=== PATIENT | male | born 1960 | race African-American/Black ===

== ENCOUNTER 2018-05-28 23:06 | Inpatient (IN) | payer OTHER ==
[2018-05-28 23:23] VITALS: BMI 19.8
--- NOTE | 2018-05-28 23:54 | HP ---
CIWA Score - CIWA Score Nausea/Vomitin Muscle Tremors: 3 Anxiety: 3 Agitation: 3 Paroxysmal Sweats: 1-Minimal Palms Moist Orientation: 0-Oriented Tacttile Disturbances: 1-Very Mild Itch/Numbness Auditory Disturbances: 1-Very Mild Visual Disturbances: 0-None Headache: 2-Mild CIWA-Ar Total Score: 17 Admission ROS BHS - HPI Chief Complaint: i need help to stop drinking alcohol and cocaine Allergies/Adverse Reactions: Allergies Allergy/AdvReac Type Severity Reaction Status Date / Time aspirin Allergy Severe Swelling Verified 02/16/16 18:26 tomato [Tomato] Allergy Mild Verified 02/16/16 18:26 milk AdvReac Intermediate Nausea Verified 02/16/16 18:26 lactose AdvReac Nausea Verified 02/16/16 18:26 History of Present Illness: this 58 years old male with alcohol and cocaine dependence,seeking detox, withdrawal symptom,last detox - Ebola screening Have you traveled outside of the country in the last 21 days: No (N) Have you had contact with anyone from an Ebola affected area: No Have you been sick,other than usual withdrawal symptoms: No Do you have a fever: No - Review of Systems Constitutional: Loss of Appetite, Malaise, Night Sweats, Changes in sleep, Unintentional Wgt. Loss EENT: reports: Nose Congestion, Other (injury to right eye 2017,hit by object, had surgery ,but loss vison since then treated at [facility]) Respiratory: reports: No Symptoms reported Cardiac: reports: No Symptoms Reported GI: reports: Diarrhea, Poor Appetite, Vomiting : reports: No Symptoms Reported Musculoskeletal: reports: Muscle Pain Integumentary: reports: Dryness Neuro: reports: Tremors Hematology: reports: No Symptoms Reported Psychiatric: reports: No Sypmtoms Reported, Judgement Intact, Mood/Affect Appropiate, Orientated x3 Patient History - Patient Medical History Hx Anemia: Yes (not sure if still anemic; not taking any supplement) Hx Asthma: Yes Hx Chronic Obstructive Pulmonary Disease (COPD): No Hx Cancer: No Hx Cardiac Disorders: No Hx Congestive Heart Failure: No Hx Hypertension: No Hx Hypercholesterolemia: No Hx Pacemaker: No HX Cerebrovascular Accident: No Hx Seizures: No Hx Dementia: No Hx Diabetes: No Hx Gastrointestinal Disorders: No Hx Liver Disease: No Hx Genitourinary Disorders: No Hx Sexually Transmitted Disorders: No Hx Renal Disease (ESRD): No Hx Thyroid Disease: No Hx Human Immunodeficiency Virus (HIV): No (12/12 negative) Hx Hepatitis C: No Hx Depression: No Hx Suicide Attempt: No Hx Bipolar Disorder: No Hx Schizophrenia: No Other Medical History: no suicidal,no homicidal - Patient Surgical History Past Surgical History: Yes Hx Neurologic Surgery: No Hx Cataract Extraction: No Hx Cardiac Surgery: No Hx Lung Surgery: No Hx Breast Surgery: No Hx Breast Biopsy: No Hx Abdominal Surgery: No Hx Appendectomy: Yes (at age of 9 years) Hx Cholecystectomy: No Hx Genitourinary Surgery: No Hx Section: No Hx Orthopedic Surgery: No Other Surgical History: Testicle removed @ 6 yrs old. Anesthesia Reaction: No - PPD History Previous Implant?: Yes Documented Results: Positive w/o proof Date: 07/03/13 Results: POSITIVE PPD to be Administered?: No - Smoking Cessation Smoking history: Current every day smoker Have you smoked in the past 12 months: Yes Aproximately how many cigarettes per day: 10 Cigars Per Day: 0 Hx Chewing Tobacco Use: No Initiated information on smoking cessation: Yes 'Breaking Loose' booklet given: 05/29/18 - Substance & Tx. History Hx Alcohol Use: Yes Hx Substance Use: Yes Substance Use Type: Alcohol, Cocaine Hx Substance Use Treatment: Yes ([facility] 02/16/16 to 02/19/16) - Substances Abused Alcohol Route: Oral Frequency: Daily Amount used: 1/5th vodka/12 of 24 ozs of beer Age of first use: 8 Date of Last Use: 05/28/18 Cocaine Route: Inhalation Frequency: 3-6 times per week Amount used: 200$ Age of first use: 17 Date of Last Use: 05/28/18 Family Disease History - Family Disease History Family Disease History: CA: Grandparent (MAT [id number]), Other: Father (ALCOHOLIC-), Brother (ALCOHOLIC) Admission Physical Exam BHS - Vital Signs Vital Signs: Vital Signs - 24 hr 05/28/18 23:21 Temperature 97.7 F Pulse Rate 72 Respiratory 19 Rate Blood Pressure 134/94 - Physical General Appearance: Yes: Moderate Distress, Irritable, Sweating, Anxious HEENTM: Yes: Nasal Congestion (blindness of right eye post trauma had surgery) Respiratory: Yes: Lungs Clear, Normal Breath Sounds, No Respiratory Distress Neck: Yes: Within Normal Limits Breast: Yes: Within Normal Limits Cardiology: Yes: Within Normal Limits, Regular Rhythm, Regular Rate, S1, S2 Abdominal: Yes: Within Normal Limits, Normal Bowel Sounds, Non Tender, Flat, Soft Genitourinary: Yes: Within Normal Limits Back: Yes: Within Normal Limits, Muscle Spasm Musculoskeletal: Yes: full range of Motion, Back pain, Muscle Pain Extremities: Yes: Tremors Neurological: Yes: advertising analyst II-XII NML intact, Fully Oriented, Alert, Motor Strength 5/5 Integumentary: Yes: Dry Lymphatic: Yes: Within Normal Limits - Diagnostic (1) Alcohol dependence with uncomplicated withdrawal Current Visit: No Status: Acute (2) Cocaine dependence Current Visit: No Status: Acute (3) Asthma Current Visit: No Status: Chronic (4) Chronic LBP Current Visit: No Status: Chronic (5) Nicotine dependence Current Visit: No Status: Chronic (6) History of anemia Current Visit: No Status: Suspected (7) Blindness of right eye Current Visit: Yes Status: Acute (8) Weight loss Current Visit: Yes Status: Acute (9) Positive PPD Current Visit: Yes Status: Acute Cleared for Admission [facility] - Detox or Rehab [facility] Level of Care: Medically Managed Detox Regimen/Protocol: Librium [facility] Breath Alcohol Content Breath Alcohol Content: 0.025 Urine Drug Screen - Results Drug Screen Negative: No Urine Drug Screen Results: MANUELA-Cocaine, BZO-Benzodiazepines
[2018-05-29] MEDS ORDERED: MAGNESIUM HYDROX 2400MG/30ML ORAL SUSPENSION 30 ML CUP PO PRN (00:15)
[2018-05-29] MEDS ORDERED: MAGNESIUM CITRATE 300 ML BOTTLE PO PRN (00:15)
[2018-05-29] MEDS ORDERED: MAG HYDROX/AL HYDROX/SIMETH 30 ML UNIT-DOSE CUP PO PRN (00:15)
[2018-05-29] MEDS ORDERED: guaiFENesin/D-METHORPHAN HB 10 ML UNIT-DOSE CUPS PO PRN (00:15)
[2018-05-29] MEDS ORDERED: chlordiazePOXIDE HCL 25 MG CAPSULE PO ONE (00:15)
[2018-05-29] MEDS ORDERED: chlordiazePOXIDE HCL 25 MG CAPSULE PO PRN (00:15)
[2018-05-29] MEDS ORDERED: IBUPROFEN 400 MG TABLET (FP) PO PRN (00:15)
[2018-05-29] MEDS ORDERED: ACETAMINOPHEN 325 MG TABLET (FP) PO PRN (00:15)
[2018-05-29] MEDS ORDERED: hydrOXYzine PAMOATE 50 MG CAPSULE (FP) PO PRN (00:15)
[2018-05-29] MEDS ORDERED: LOPERAMIDE HCL 2 MG CAPSULE PO PRN (00:15)
[2018-05-29] MEDS ORDERED: MENTHOL/PHENOL 1 EACH UD MM PRN (00:15)
[2018-05-29] MEDS ORDERED: P-EPHED 60MG/TRIPROLIDI 2.5MG TABLET PO PRN (00:15)
[2018-05-29] MEDS ORDERED: NICOTINE POLACRILEX 2 MG GUM BC PRN (00:15)
[2018-05-29] MEDS ORDERED: ALBUTEROL SO4 8 GM HFA INHALER IH PRN (00:25)
[2018-05-29] MEDS: MELATONIN 5 MG TABLETS PO PRN ×2 (01:37→22:39)
[2018-05-29] MEDS: chlordiazePOXIDE HCL 25 MG CAPSULE PO SCH ×4 (06:00→22:38)
[2018-05-29] MEDS: ARTIFICIAL TEARS (POLYVINYL ALCOHOL 1.4%) OPTH DROPS OU SCH ×3 (07:57→22:40)
[2018-05-29 10:31] LABS: HEMATOCRIT 30.2 % (35.4-49); MCH 27.6 pg (25.7-33.7); MEAN CELL VOLUME 83.6 fl (80-96); MEAN PLT VOLUME 8.9 fl (7.5-11.1); PLATELET COUNT 220 K/MM3 (134-434); RBC 3.61 M/mm3 (4.00-5.60); WHITE BLOOD COUNT 4.3 K/mm3 (4.0-10.0)
[2018-05-29 10:48] LABS: CHLORIDE 100 mmol/L (98-107); POTASSIUM 4.2 mmol/L (3.5-5.1); SODIUM 139 mmol/L (136-145)
[2018-05-29] MEDS: PRENATAL VITAMINS W/ FOLIC ACID TABLET (FP) PO SCH (10:52)
[2018-05-29] MEDS: BRIMONIDINE TARTRATE 0.2% OPHTHALMIC 5 ML BOTTLE OS SCH ×2 (10:54→22:41)
[2018-05-29] MEDS: TIMOLOL 0.5% OPHTHALMIC SOL 5 ML BOTTLE OS SCH ×2 (10:54→22:41)
[2018-05-29 10:56] LABS: ALK PHOS 56 U/L (45-117); ANION GAP 8 (8-16); BILIRUBIN,TOTAL 1.2 mg/dL (0.2-1.0); BLOOD UREA NITROGEN 25 mg/dL (7-18); CALCIUM 8.7 mg/dL (8.5-10.1); CO2 31 mmol/L (21-32); CREATININE 1.5 mg/dL (0.7-1.3); SGOT/AST 26 U/L (15-37); SGPT/ALT 26 U/L (12-78); TOT PROT 7.8 g/dl (6.4-8.2)
[2018-05-29 11:16] LABS: GLUCOSE,RANDOM 110 mg/dL (74-106)
--- NOTE | 2018-05-29 11:31 | EKG ---
Test Reason : Blood Pressure : / mmHG Vent. Rate : 064 BPM Atrial Rate : 064 BPM P-R Int : 158 ms QRS Dur : 092 ms QT Int : 414 ms P-R-T Axes : 072 038 049 degrees QTc Int : 427 ms NORMAL SINUS RHYTHM MODERATE VOLTAGE CRITERIA FOR LVH, MAY BE NORMAL VARIANT BORDERLINE ECG WHEN COMPARED WITH ECG OF 16-JUN-2015 00:59, NO SIGNIFICANT CHANGE WAS FOUND Confirmed by POLA ROUSSEAU, SHALOM ([id number]) on 05/29/2018 11:30:47 AM Referred By: Confirmed By:SHALOM ESCALONA MD
--- NOTE | 2018-05-29 14:40 | PN ---
[facility] CIWA - CIWA Score Nausea/Vomitin-No Nausea/No Vomiting Muscle Tremors: 4-Moderate,w/Arms Extend Anxiety: 4-Mod. Anxious/Guarded Agitation: 4-Moderately Restless Paroxysmal Sweats: 1-Minimal Palms Moist Orientation: 0-Oriented Tacttile Disturbances: 0-None Auditory Disturbances: 0-None Visual Disturbances: 0-None Headache: 0-None Present CIWA-Ar Total Score: 13 S Progress Note (SOAP) Subjective: ANXIETY,FATIGUE,INTERMITTENT SLEEP. Objective: 05/29/18 14:36 Vital Signs 05/29/18 05/29/18 09:19 13:40 Temperature 97.0 F L 97.3 F L Pulse Rate 55 L 61 Respiratory 18 20 Rate Blood Pressure 117/64 110/61 Laboratory Tests 05/29/18 05/29/18 05/29/18 07:40 07:40 07:40 WBC 4.3 RBC 3.61 L Hgb 10.0 L Hct 30.2 L MCV 83.6 MCH 27.6 MCHC 33.0 RDW 23.0 H Plt Count 220 MPV 8.9 Sodium 139 Potassium 4.2 Chloride 100 Carbon Dioxide 31 Anion Gap 8 BUN 25 H Creatinine 1.5 H Creat Clearance w eGFR 48.07 Random Glucose 110 H D Calcium 8.7 Total Bilirubin 1.2 H AST 26 D ALT 26 Alkaline Phosphatase 56 Total Protein 7.8 Albumin 4.0 RPR Titer Nonreactive Assessment: 05/29/18 14:37 WITHDRAWAL SX Plan: CONTINUE DETOX
--- NOTE | 2018-05-29 17:21 | PN ---
BHS Progress Note Note: pt is complaining of whole body pain- will give flexeril, pt is on tylenol and motrin
[2018-05-29] MEDS: CYCLOBENZAPRINE HCL 10 MG TABLET (FP) PO SCH (22:38)
[2018-05-29] MEDS: THIAMINE HCL 100 MG TABLET (FP) PO SCH (22:38)
[2018-05-30] MEDS: ARTIFICIAL TEARS (POLYVINYL ALCOHOL 1.4%) OPTH DROPS OU SCH ×3 (06:16→22:18)
[2018-05-30] MEDS: chlordiazePOXIDE HCL 25 MG CAPSULE PO SCH ×4 (06:16→22:11)
[2018-05-30] MEDS: CYCLOBENZAPRINE HCL 10 MG TABLET (FP) PO SCH ×3 (06:16→22:10)
[2018-05-30] MEDS: TIMOLOL 0.5% OPHTHALMIC SOL 5 ML BOTTLE OS SCH ×2 (10:20→22:12)
[2018-05-30] MEDS: PRENATAL VITAMINS W/ FOLIC ACID TABLET (FP) PO SCH (10:21)
[2018-05-30] MEDS: BRIMONIDINE TARTRATE 0.2% OPHTHALMIC 5 ML BOTTLE OS SCH ×2 (10:21→22:11)
--- NOTE | 2018-05-30 12:31 | PN ---
S CIWA - CIWA Score Nausea/Vomitin-No Nausea/No Vomiting Muscle Tremors: 4-Moderate,w/Arms Extend Anxiety: 4-Mod. Anxious/Guarded Agitation: 4-Moderately Restless Paroxysmal Sweats: 1-Minimal Palms Moist Orientation: 0-Oriented Tacttile Disturbances: 0-None Auditory Disturbances: 0-None Visual Disturbances: 0-None Headache: 0-None Present CIWA-Ar Total Score: 13 BHS Progress Note (SOAP) Subjective: ANXIETY,INTERMITTENT SLEEP,FATIGUE. Objective: 05/30/18 12:36 Vital Signs 05/30/18 06:43 Temperature 97.2 F L Pulse Rate 51 L Respiratory 18 Rate Blood Pressure 108/65 Laboratory Tests 05/29/18 05/29/18 05/29/18 07:40 07:40 07:40 WBC 4.3 RBC 3.61 L Hgb 10.0 L Hct 30.2 L MCV 83.6 MCH 27.6 MCHC 33.0 RDW 23.0 H Plt Count 220 MPV 8.9 Sodium 139 Potassium 4.2 Chloride 100 Carbon Dioxide 31 Anion Gap 8 BUN 25 H Creatinine 1.5 H Creat Clearance w eGFR 48.07 Random Glucose 110 H D Calcium 8.7 Total Bilirubin 1.2 H AST 26 D ALT 26 Alkaline Phosphatase 56 Total Protein 7.8 Albumin 4.0 RPR Titer Nonreactive Assessment: 05/30/18 12:36 WITHDRAWAL SX Plan: CONTINUE DETOX
[2018-05-30] MEDS: FERROUS SO4 325 MG TABLET (FP) PO SCH (14:20)
[2018-05-30] MEDS: THIAMINE HCL 100 MG TABLET (FP) PO SCH (22:10)
[2018-05-30] MEDS: MELATONIN 5 MG TABLETS PO PRN (22:14)
[2018-05-31] MEDS: CYCLOBENZAPRINE HCL 10 MG TABLET (FP) PO SCH ×3 (06:45→22:27)
[2018-05-31] MEDS: chlordiazePOXIDE 5 MG CAPSULE PO SCH ×4 (06:47→22:27)
[2018-05-31] MEDS: ARTIFICIAL TEARS (POLYVINYL ALCOHOL 1.4%) OPTH DROPS OU SCH ×3 (06:47→22:31)
[2018-05-31] MEDS: BRIMONIDINE TARTRATE 0.2% OPHTHALMIC 5 ML BOTTLE OS SCH ×2 (10:26→22:30)
[2018-05-31] MEDS: FERROUS SO4 325 MG TABLET (FP) PO SCH (10:26)
[2018-05-31] MEDS: PRENATAL VITAMINS W/ FOLIC ACID TABLET (FP) PO SCH (10:26)
[2018-05-31] MEDS: TIMOLOL 0.5% OPHTHALMIC SOL 5 ML BOTTLE OS SCH ×2 (10:26→22:30)
--- NOTE | 2018-05-31 16:42 | PN ---
BHS Progress Note (SOAP) Subjective: Anxious, Fatigue. Objective: PATIENT A & O X 3, OBSERVED AMBULATING ON UNIT. NO ACUTE DISTRESS. 05/31/18 16:40 Vital Signs Temperature 97.4 F L 05/31/18 15:16 Pulse Rate 66 05/31/18 15:16 Respiratory Rate 18 05/31/18 15:16 Blood Pressure 119/70 05/31/18 15:16 O2 Sat by Pulse Oximetry (%) Laboratory Tests 05/29/18 05/29/18 05/29/18 07:40 07:40 07:40 WBC 4.3 RBC 3.61 L Hgb 10.0 L Hct 30.2 L MCV 83.6 MCH 27.6 MCHC 33.0 RDW 23.0 H Plt Count 220 MPV 8.9 Sodium 139 Potassium 4.2 Chloride 100 Carbon Dioxide 31 Anion Gap 8 BUN 25 H Creatinine 1.5 H Creat Clearance w eGFR 48.07 Random Glucose 110 H D Calcium 8.7 Total Bilirubin 1.2 H AST 26 D ALT 26 Alkaline Phosphatase 56 Total Protein 7.8 Albumin 4.0 RPR Titer Nonreactive LABS NOTED. UA RESULTS PENDING. 05/31/18 16:41 Assessment: 05/31/18 16:41 WITHDRAWAL SYMPTOMS. Plan: CONTINUE DETOX. PATIENT SCHEDULED FOR DISCHARGE TOMORROW.
[2018-05-31] MEDS: THIAMINE HCL 100 MG TABLET (FP) PO SCH (22:27)
[2018-05-31] MEDS: MELATONIN 5 MG TABLETS PO PRN (22:28)
[2018-06-01] MEDS ORDERED: chlordiazePOXIDE HCL 10 MG CAPSULE PO SCH (05:00)
[2018-06-01] MEDS: CYCLOBENZAPRINE HCL 10 MG TABLET (FP) PO SCH (06:09)
[2018-06-01] MEDS: ARTIFICIAL TEARS (POLYVINYL ALCOHOL 1.4%) OPTH DROPS OU SCH (06:09)
[2018-06-01 06:24] VITALS: BP 119/68; PULSE 50; TEMP 96.8
[2018-06-01] MEDS: PRENATAL VITAMINS W/ FOLIC ACID TABLET (FP) PO SCH (09:03)
[2018-06-01] MEDS: FERROUS SO4 325 MG TABLET (FP) PO SCH (09:03)
[2018-06-01] MEDS: BRIMONIDINE TARTRATE 0.2% OPHTHALMIC 5 ML BOTTLE OS SCH (09:04)
[2018-06-01] MEDS: TIMOLOL 0.5% OPHTHALMIC SOL 5 ML BOTTLE OS SCH (09:04)
--- NOTE | 2018-06-01 11:38 | PN ---
BHS Progress Note (SOAP) Subjective: pt without complaints today- gong home Objective: 06/01/18 11:36 Vital Signs - 24 hr 05/31/18 05/31/18 05/31/18 15:16 18:31 23:53 Temperature 97.4 F L 97.4 F L 97 F L Pulse Rate 66 57 L 69 Respiratory 18 18 18 Rate Blood Pressure 119/70 97/56 116/77 06/01/18 06/01/18 06/01/18 00:30 03:30 06:24 Temperature 96.8 F L Pulse Rate 50 L Respiratory 18 18 18 Rate Blood Pressure 119/68 CBC, BMP 05/29/18 07:40 05/29/18 07:40 stable VSS ambulatory Assessment: 06/01/18 11:37 alcohol detox completed anemia- f/u PCP Plan: f/u PCP d/c to home today
--- NOTE | 2018-06-01 11:40 | DS ---
[facility] Detox Discharge Summary Admission Date: 05/28/18 Discharge Date: 06/01/18 - History Present History: Alcohol Dependence, Cocaine Dependence - Physical Exam Results Vital Signs: Vital Signs Temperature 96.8 F L 06/01/18 06:24 Pulse Rate 50 L 06/01/18 06:24 Respiratory Rate 18 06/01/18 06:24 Blood Pressure 119/68 06/01/18 06:24 O2 Sat by Pulse Oximetry (%) Pertinent Admission Physical Exam Findings: pt awake and oriented grossly nl PE - Treatment Hospital Course: Detox Protocol Followed, Detoxed Safely, Responded well, Discharged Condition Good - Medication Discharge Medications: Ambulatory Orders Albuterol Sulfate Inhaler - [Ventolin HFA Inhaler -] 2 inh PO Q4H PRN 01/03/16 Alphagan 0.2% - 1 drop OS BID 05/29/18 Polyvinyl Alcohol [Artificial Tears] 1 drop OU TID 05/29/18 Timolol 0.5% [Timoptic 0.5%] 1 drop OS BID 05/29/18 - Diagnosis (1) Alcohol dependence with uncomplicated withdrawal Status: Acute (2) Cocaine dependence Status: Acute (3) Blindness of right eye Status: Chronic (4) Iron deficiency anemia Status: Suspected Qualifiers: Iron deficiency anemia type: unspecified iron deficiency Qualified Code(s) : D50.9 - Iron deficiency anemia, unspecified - AMA Did Patient Leave Against Medical Advice: No
== END 2018-06-01 09:10 | disposition home or self-care (01) | DRG 774 ==
LOC: YASAS 23:06 → Y3N 23:50
PROVIDERS: ADMIT Surgery; ATTEND Surgery
PROC: HZ2ZZZZ Detoxification Services for Substance Abuse Treatment (ICD-10-PCS; principal; 2018-05-28)
DX: F10.230 Alcohol dependence with withdrawal, uncomplicated (principal); F14.20 Cocaine dependence, uncomplicated; F17.210 Nicotine dependence, cigarettes, uncomplicated; H54.413A Blindness right eye category 3, normal vision left eye; J45.909 Unspecified asthma, uncomplicated; F50.9 Eating disorder, unspecified; M54.5 Low back pain; G89.29 Other chronic pain; R76.11 Nonspecific reaction to tuberculin skin test without active tuberculosis; R63.4 Abnormal weight loss; Z68.1 Body mass index [BMI] 19.9 or less, adult; Z88.6 Allergy status to analgesic agent; Z91.018 Allergy to other foods; Z59.0 Homelessness
CPT/HCPCS: 36415; 71046-TC-FY; 80053; 85027; 86593; 93005; 93010

== ENCOUNTER 2018-08-23 08:18 | Inpatient (IN) | payer OTHER ==
[2018-08-23 08:42] VITALS: BMI 20.9
--- NOTE | 2018-08-23 09:17 | HP ---
CIWA Score - CIWA Score Nausea/Vomitin-Mild Nausea/No Vomiting Muscle Tremors: 2 Anxiety: 3 Agitation: 1-Slight > Activity Paroxysmal Sweats: No Perspiration Orientation: 1-Uncertain about Date Tacttile Disturbances: 1-Very Mild Itch/Numbness Auditory Disturbances: 0-None Visual Disturbances: 1-Very Mild Sensitivity Headache: 2-Mild CIWA-Ar Total Score: 12 Admission ROS BHS - HPI Chief Complaint: I'm too old, I can't do it anymore, I'm an alcoholic, I need help Allergies/Adverse Reactions: Allergies Allergy/AdvReac Type Severity Reaction Status Date / Time aspirin Allergy Severe Swelling Verified 08/23/18 09:20 tomato [Tomato] Allergy Mild Verified 08/23/18 09:20 milk AdvReac Intermediate Nausea Verified 08/23/18 09:20 lactose AdvReac Nausea Verified 08/23/18 09:20 History of Present Illness: 58 yo gentleman here for detox from alcohol, also using cocaine. Denies seizures but does have black outs. Patient reports he gets very sick when he tries to stop drinking - feels like 'something sticks into him all over' , states he gets very shaky and gets diarrhea and gets very nervous when he tries to stop drinking on his own. Exam Limitations: Clinical Condition - Ebola screening Have you traveled outside of the country in the last 21 days: No (N) Have you had contact with anyone from an Ebola affected area: No Have you been sick,other than usual withdrawal symptoms: No Do you have a fever: No - Review of Systems Constitutional: Loss of Appetite, Malaise, Changes in sleep, Weakness EENT: reports: Blurred Vision Respiratory: reports: No Symptoms reported Cardiac: reports: No Symptoms Reported GI: reports: Diarrhea, Nausea, Poor Appetite, Indigestion, Abdominal cramping : reports: Frequency Musculoskeletal: reports: Back Pain, Muscle Pain Integumentary: reports: Dryness Neuro: reports: Headache Endocrine: reports: No Symptoms Reported Hematology: reports: Anemia Psychiatric: reports: Judgement Intact, Mood/Affect Appropiate, Anxious Other Systems: Reviewed and Negative Patient History - Patient Medical History Hx Anemia: Yes (not sure if still anemic; not taking any supplement) Hx Asthma: Yes Hx Chronic Obstructive Pulmonary Disease (COPD): No Hx Cancer: No Hx Cardiac Disorders: No Hx Congestive Heart Failure: No Hx Hypertension: Yes (on meds) Hx Hypercholesterolemia: No Hx Pacemaker: No HX Cerebrovascular Accident: No Hx Seizures: No Hx Dementia: No Hx Diabetes: No Hx Gastrointestinal Disorders: Yes (gerd) Hx Liver Disease: No Hx Genitourinary Disorders: No Hx Sexually Transmitted Disorders: Yes (hx syphilis years ago got injections) Hx Renal Disease (ESRD): Yes (renal insufficiency) Hx Thyroid Disease: No Hx Human Immunodeficiency Virus (HIV): No (12/12 negative) Hx Hepatitis C: No Hx Depression: No (denied) Hx Suicide Attempt: No Hx Bipolar Disorder: No Hx Schizophrenia: No - Patient Surgical History Past Surgical History: Yes Hx Neurologic Surgery: No Hx Cataract Extraction: No Hx Cardiac Surgery: No Hx Lung Surgery: No Hx Breast Surgery: No Hx Breast Biopsy: No Hx Abdominal Surgery: No Hx Appendectomy: Yes (at age of 9 years) Hx Cholecystectomy: No Hx Genitourinary Surgery: No Hx Section: No Hx Orthopedic Surgery: No Other Surgical History: Testicle removed @ 6 yrs old.;right eye surgery 2017 to remove lens-trauma Anesthesia Reaction: No - PPD History Previous Implant?: Yes Documented Results: Positive w/proof Implanted On Prior [facility] Admission?: No Date: 07/03/13 (treated) Results: cxr 05/29/18 done PPD to be Administered?: No - Reproductive History Patient is a Female of Child Bearing Age (11 -55 yrs old): No - Smoking Cessation Smoking history: Current every day smoker Have you smoked in the past 12 months: Yes Aproximately how many cigarettes per day: 10 Cigars Per Day: 0 Hx Chewing Tobacco Use: No Initiated information on smoking cessation: Yes 'Breaking Loose' booklet given: 08/23/18 (give on floor) - Substance & Tx. History Hx Alcohol Use: Yes Hx Substance Use: Yes Substance Use Type: Alcohol, Cocaine Hx Substance Use Treatment: Yes - Substances Abused alcohol Route: Oral Frequency: Daily Amount used: 1/5 vodka; 24 oz beer Age of first use: 8 Date of Last Use: 08/23/18 cocaine Route: Inhalation Frequency: Daily Amount used: $200 Age of first use: 17 Date of Last Use: 08/23/18 Family Disease History - Family Disease History Family Disease History: CA: Grandparent (MAT [id number]), Other: Father ( - etoh), Mother (living, ), Brother (two - one who drinks), Sister ( one - living - healthy), Son (two - living) Admission Physical Exam [facility] - Vital Signs Vital Signs: Vital Signs - 24 hr 08/23/18 08:41 Temperature 97.6 F Pulse Rate 77 Respiratory 19 Rate Blood Pressure 121/71 - Physical General Appearance: Yes: Nourished, Appropriately Dressed, Mild Distress, Anxious HEENTM: Yes: EOMI, Hearing grossly Normal, Normocephalic, Normal Voice, Pharynx Normal, Other (blind right eye) Respiratory: Yes: Normal Breath Sounds, No Respiratory Distress Neck: Yes: No masses,lesions,Nodules Breast: Yes: Breast Exam Deferred Cardiology: Yes: Regular Rhythm, Regular Rate Abdominal: Yes: Non Tender, Flat Genitourinary: Yes: Frequency Back: Yes: Normal Inspection, Other (mild kyphosis) Musculoskeletal: Yes: full range of Motion, Gait Steady Extremities: Yes: Normal Inspection, Normal Range of Motion, Non-Tender, Pedal Edema (mild ankle edema) Neurological: Yes: Alert, Motor Strength 5/5, Normal Mood/Affect, Normal Response Integumentary: Yes: Normal Color, Dry, Warm, Other (left matias healed scrape) Lymphatic: Yes: Within Normal Limits - Diagnostic (1) Alcohol dependence with uncomplicated withdrawal Current Visit: Yes Status: Acute (2) Cocaine dependence, uncomplicated Current Visit: Yes Status: Acute (3) Asthma Current Visit: Yes Status: Chronic (4) Blindness of right eye Current Visit: Yes Status: Chronic (5) Chronic LBP Current Visit: Yes Status: Chronic Qualifiers: Back pain laterality: unspecified Sciatica presence: unspecified whether sciatica present Qualified Code(s): M54.5 - Low back pain; G89.29 - Other chronic pain (6) PPD positive, treated Current Visit: Yes Status: Chronic Comment: CXR done 05/29/18 (7) Chronic renal insufficiency, stage III (moderate) Current Visit: Yes Status: Chronic (8) History of anemia Current Visit: Yes Status: Chronic (9) Blackout Current Visit: Yes Status: Suspected Cleared for Admission [facility] - Detox or Rehab [facility] Level of Care: Medically Managed Detox Regimen/Protocol: Librium [facility] Breath Alcohol Content Breath Alcohol Content: 0.219 Urine Drug Screen - Results Drug Screen Negative: No Urine Drug Screen Results: MANUELA-Cocaine, BZO-Benzodiazepines
[2018-08-23] MEDS ORDERED: guaiFENesin/D-METHORPHAN HB 10 ML UNIT-DOSE CUPS PO PRN (09:57)
[2018-08-23] MEDS ORDERED: ACETAMINOPHEN 325 MG TABLET (FP) PO PRN (09:57)
[2018-08-23] MEDS ORDERED: NICOTINE POLACRILEX 4 MG GUM BUC PRN (09:57)
[2018-08-23] MEDS ORDERED: MAGNESIUM CITRATE 300 ML BOTTLE PO PRN (09:57)
[2018-08-23] MEDS ORDERED: MAG HYDROX/AL HYDROX/SIMETH 30 ML UNIT-DOSE CUP PO PRN (09:57)
[2018-08-23] MEDS ORDERED: MAGNESIUM HYDROX 2400MG/30ML ORAL SUSPENSION 30 ML CUP PO PRN (09:57)
[2018-08-23] MEDS ORDERED: LOPERAMIDE HCL 2 MG CAPSULE PO PRN (09:57)
[2018-08-23] MEDS ORDERED: MENTHOL/PHENOL 1 EACH UD MM PRN (09:57)
[2018-08-23] MEDS ORDERED: hydrOXYzine PAMOATE 25 MG CAPSULE (FP) PO PRN (09:57)
[2018-08-23] MEDS ORDERED: P-EPHED 60MG/TRIPROLIDI 2.5MG TABLET PO PRN (09:57)
[2018-08-23] MEDS ORDERED: chlordiazePOXIDE HCL 25 MG CAPSULE PO PRN (09:57)
[2018-08-23] MEDS ORDERED: chlordiazePOXIDE HCL 25 MG CAPSULE PO ONE (09:57)
[2018-08-23] MEDS ORDERED: ALBUTEROL SO4 8 GM HFA INHALER IH PRN (09:59)
[2018-08-23] MEDS: amLODIPine BESYLATE 5 MG TABLET (FP) PO SCH (10:50)
[2018-08-23] MEDS: TIMOLOL 0.5% OPHTHALMIC SOL 5 ML BOTTLE OS SCH ×2 (12:07→22:39)
[2018-08-23] MEDS: PATIENT'S OWN MEDICATION (NON-FORMULARY) (Brimonidine Tartrate/Timolol [Combigan 0.2%-0.5% OP SCH ×4 (12:07→23:07)
[2018-08-23] MEDS: PRENATAL VITAMINS W/ FOLIC ACID TABLET (FP) PO SCH (12:07)
[2018-08-23] MEDS: chlordiazePOXIDE HCL 25 MG CAPSULE PO SCH ×2 (17:20→22:38)
[2018-08-23] MEDS: MELATONIN 5 MG TABLETS PO PRN (22:42)
[2018-08-23] MEDS: THIAMINE HCL 100 MG TABLET (FP) PO SCH (23:02)
[2018-08-24] MEDS: chlordiazePOXIDE HCL 25 MG CAPSULE PO SCH ×4 (06:21→22:19)
[2018-08-24] MEDS: amLODIPine BESYLATE 5 MG TABLET (FP) PO SCH (10:36)
[2018-08-24] MEDS: PRENATAL VITAMINS W/ FOLIC ACID TABLET (FP) PO SCH (10:36)
[2018-08-24] MEDS: PATIENT'S OWN MEDICATION (NON-FORMULARY) (Brimonidine Tartrate/Timolol [Combigan 0.2%-0.5% OP SCH ×4 (10:37→21:38)
[2018-08-24] MEDS: TIMOLOL 0.5% OPHTHALMIC SOL 5 ML BOTTLE OS SCH ×2 (10:38→21:38)
[2018-08-24 11:13] LABS: HEMATOCRIT 33.2 % (35.4-49); HEMOGLOBIN 10.5 GM/dL (11.7-16.9); MCHC 31.7 g/dl (32.0-35.9); MEAN CELL VOLUME 85.1 fl (80-96); MEAN PLT VOLUME 9.1 fl (7.5-11.1); PLATELET COUNT 262 K/MM3 (134-434); RDW 18.1 % (11.9-15.9); WHITE BLOOD COUNT 4.4 K/mm3 (4.0-10.0)
[2018-08-24 11:26] LABS: ALBUMIN 3.4 g/dl (3.4-5.0); ALK PHOS 66 U/L (45-117); ANION GAP 6 MMOL/L (8-16); BILIRUBIN,TOTAL 0.7 mg/dL (0.2-1); BLOOD UREA NITROGEN 17 mg/dL (7-18); CALCIUM 8.8 mg/dL (8.5-10.1); CHLORIDE 103 mmol/L (98-107); CO2 32 mmol/L (21-32); CREATININE 1.1 mg/dL (0.55-1.3); GLUCOSE,RANDOM 68 mg/dL (74-106); POTASSIUM 4.4 mmol/L (3.5-5.1); SGOT/AST 28 U/L (15-37); SGPT/ALT 20 U/L (13-61); SODIUM 140 mmol/L (136-145); TOT PROT 7.6 g/dl (6.4-8.2)
--- NOTE | 2018-08-24 16:58 | PN ---
S CIWA - CIWA Score Nausea/Vomitin Muscle Tremors: 4-Moderate,w/Arms Extend Anxiety: 4-Mod. Anxious/Guarded Agitation: 4-Moderately Restless Paroxysmal Sweats: 3 Orientation: 0-Oriented Tacttile Disturbances: 0-None Auditory Disturbances: 0-None Visual Disturbances: 0-None Headache: 1-Very Mild CIWA-Ar Total Score: 18 BHS Progress Note (SOAP) Subjective: Anxious, tremor, chills, interrupted sleep Objective: 08/24/18 16:55 Last Vital Signs Temp Pulse Resp BP Pulse Ox 97.2 F L 62 16 107/63 08/24/18 14:52 08/24/18 14:52 08/24/18 14:52 08/24/18 14:52 Laboratory Tests 08/24/18 08/24/18 08/24/18 07:49 07:49 07:49 WBC 4.4 RBC 3.90 L Hgb 10.5 L Hct 33.2 L MCV 85.1 MCH 27.0 MCHC 31.7 L RDW 18.1 H Plt Count 262 MPV 9.1 Sodium 140 Potassium 4.4 Chloride 103 Carbon Dioxide 32 Anion Gap 6 L BUN 17 Creatinine 1.1 Creat Clearance w eGFR > 60 Random Glucose 68 L Calcium 8.8 Total Bilirubin 0.7 AST 28 ALT 20 Alkaline Phosphatase 66 Total Protein 7.6 Albumin 3.4 RPR Titer Nonreactive Labs reviewed Assessment: 08/24/18 16:55 Withdrawal sx Plan: Continue detox Ferrous sulfate 325mg PO BID for iron deficiency anemia, colace 100mg PO qhs to prevent constipation
[2018-08-24] MEDS ORDERED: DOCUSATE SODIUM 100 MG CAPSULE (FP) PO SCH (21:00)
[2018-08-24] MEDS: THIAMINE HCL 100 MG TABLET (FP) PO SCH (21:36)
[2018-08-24] MEDS: MELATONIN 5 MG TABLETS PO PRN (21:36)
[2018-08-24] MEDS ORDERED: FERROUS SO4 325 MG TABLET (FP) PO SCH (22:00)
[2018-08-25 03:25] VITALS: PULSE 50
[2018-08-25 06:19] VITALS: BP 122/71; TEMP 98
[2018-08-25] MEDS: chlordiazePOXIDE HCL 25 MG CAPSULE PO SCH (06:46)
--- NOTE | 2018-08-25 15:02 | DS ---
[facility] Detox Discharge Summary Admission Date: 08/23/18 Discharge Date: 08/25/18 - History Present History: Alcohol Dependence, Cocaine Dependence Pertinent Past History: Asthma - Physical Exam Results Vital Signs: Vital Signs Temperature 98 F 08/25/18 06:18 Pulse Rate 50 L 08/25/18 06:18 Respiratory Rate 16 08/25/18 06:18 Blood Pressure 122/71 08/25/18 06:18 O2 Sat by Pulse Oximetry (%) Pertinent Admission Physical Exam Findings: Withdrawal sxs Laboratory Tests 08/24/18 08/24/18 08/24/18 07:49 07:49 07:49 WBC 4.4 RBC 3.90 L Hgb 10.5 L Hct 33.2 L MCV 85.1 MCH 27.0 MCHC 31.7 L RDW 18.1 H Plt Count 262 MPV 9.1 Sodium 140 Potassium 4.4 Chloride 103 Carbon Dioxide 32 Anion Gap 6 L BUN 17 Creatinine 1.1 Creat Clearance w eGFR > 60 Random Glucose 68 L Calcium 8.8 Total Bilirubin 0.7 AST 28 ALT 20 Alkaline Phosphatase 66 Total Protein 7.6 Albumin 3.4 RPR Titer Nonreactive Labs reviewed - Medication Discharge Medications: Ambulatory Orders Albuterol Sulfate Inhaler - [Ventolin HFA Inhaler -] 2 inh PO Q4H PRN 01/03/16 Polyvinyl Alcohol [Artificial Tears] 1 drop OU TID 05/29/18 Timolol 0.5% [Timoptic 0.5%] 1 drop OS BID 05/29/18 Amlodipine Besylate [Norvasc -] 5 mg PO DAILY 08/23/18 Brimonidine Tartrate/Timolol [Combigan Eye Drops] 5 ml OP QID 08/23/18 - Diagnosis (1) Alcohol dependence with uncomplicated withdrawal Status: Acute (2) Cocaine dependence, uncomplicated Status: Chronic (3) Asthma Status: Chronic (4) Blindness of right eye Status: Chronic (5) Chronic LBP Status: Chronic Qualifiers: Back pain laterality: unspecified Sciatica presence: unspecified whether sciatica present Qualified Code(s): M54.5 - Low back pain; G89.29 - Other chronic pain (6) Chronic renal insufficiency, stage III (moderate) Status: Chronic (7) Positive PPD Status: Chronic (8) Iron deficiency anemia Status: Suspected Qualifiers: Iron deficiency anemia type: unspecified iron deficiency Qualified Code(s) : D50.9 - Iron deficiency anemia, unspecified - AMA Did Patient Leave Against Medical Advice: Yes (F/U with your PCP within 3 days; proceed to ER stat if withdrawal sxs)
[2018-08-25] MEDS ORDERED: chlordiazePOXIDE 5 MG CAPSULE PO SCH (17:00)
--- NOTE | 2018-08-26 11:09 | EKG ---
Test Reason : Blood Pressure : / mmHG Vent. Rate : 065 BPM Atrial Rate : 065 BPM P-R Int : 164 ms QRS Dur : 096 ms QT Int : 416 ms P-R-T Axes : 076 023 033 degrees QTc Int : 432 ms NORMAL SINUS RHYTHM MODERATE VOLTAGE CRITERIA FOR LVH, MAY BE NORMAL VARIANT BORDERLINE ECG WHEN COMPARED WITH ECG OF 29-MAY-2018 00:56, NO SIGNIFICANT CHANGE WAS FOUND Confirmed by Randal Khalil MD ([id number]) on 08/26/2018 11:09:38 AM Referred By: Confirmed By:Randal Khalil MD
[2018-08-26] MEDS ORDERED: chlordiazePOXIDE HCL 10 MG CAPSULE PO SCH (17:00)
== END 2018-08-25 07:49 | disposition left against medical advice (07) | DRG 770 ==
LOC: YASAS 08:18 → Y3N 09:24
PROC: HZ2ZZZZ Detoxification Services for Substance Abuse Treatment (ICD-10-PCS; principal; 2018-08-23)
DX: F10.230 Alcohol dependence with withdrawal, uncomplicated (principal); F14.20 Cocaine dependence, uncomplicated; F17.210 Nicotine dependence, cigarettes, uncomplicated; I12.9 Hypertensive chronic kidney disease with stage 1 through stage 4 chronic kidney disease, or unspecified chronic kidney disease; N18.3 Chronic kidney disease, stage 3 (moderate); D50.9 Iron deficiency anemia, unspecified; J45.909 Unspecified asthma, uncomplicated; H54.40 Blindness, one eye, unspecified eye; M54.5 Low back pain; G89.29 Other chronic pain; R76.11 Nonspecific reaction to tuberculin skin test without active tuberculosis; K21.9 Gastro-esophageal reflux disease without esophagitis; Z87.438 Personal history of other diseases of male genital organs; Z88.6 Allergy status to analgesic agent; Z91.011 Allergy to milk products; Z59.0 Homelessness
CPT/HCPCS: 36415; 80053; 85027; 86593; 93005; 93010

== ENCOUNTER 2021-03-05 14:04 | Inpatient (IN) | payer OTHER ==
[2021-03-05 16:01] VITALS: BMI 20.3
[2021-03-05] MEDS ORDERED: ACETAMINOPHEN 325 MG TABLET (FP) PO PRN ×4 (18:48→19:52)
[2021-03-05] MEDS ORDERED: IBUPROFEN 400 MG TABLET (FP) PO PRN ×2 (18:48→19:52)
[2021-03-05] MEDS ORDERED: MAGNESIUM CITRATE 300 ML BOTTLE PO PRN ×2 (18:48→19:52)
[2021-03-05] MEDS ORDERED: BISMUTH SUBSALICYLATE 524 MG/30 ML UD PO PRN ×2 (18:48→19:52)
[2021-03-05] MEDS ORDERED: MENTHOL/PHENOL 1 EACH UD MM PRN ×2 (18:48→19:52)
[2021-03-05] MEDS ORDERED: NICOTINE POLACRILEX 2 MG GUM BUC PRN ×2 (18:48→19:52)
[2021-03-05] MEDS ORDERED: METHOCARBAMOL 500 MG TABLET PO PRN (18:48)
[2021-03-05] MEDS ORDERED: MAGNESIUM HYDROX 2400MG/30ML ORAL SUSPENSION 30 ML CUP PO PRN ×2 (18:48→19:52)
[2021-03-05] MEDS ORDERED: ONDANSETRON *ODT* 4 MG TABLET SL PRN ×2 (18:48→19:52)
[2021-03-05] MEDS ORDERED: MAG HYDROX/AL HYDROX/SIMETH 30 ML UNIT-DOSE CUP PO PRN ×2 (18:48→19:52)
[2021-03-05] MEDS ORDERED: chlordiazePOXIDE HCL 25 MG CAPSULE PO PRN (19:52)
[2021-03-05] MEDS ORDERED: MELATONIN 5 MG TABLETS PO SCH (22:00)
[2021-03-05] MEDS ORDERED: THIAMINE HCL 100 MG TABLET (FP) PO SCH (22:00)
[2021-03-05] MEDS: THIAMINE HCL 100 MG TABLET (FP) PO SCH (22:02)
[2021-03-05] MEDS: METHOCARBAMOL 500 MG TABLET PO PRN (22:02)
[2021-03-05] MEDS: MELATONIN 5 MG TABLETS PO SCH (22:03)
[2021-03-05] MEDS: chlordiazePOXIDE HCL 25 MG CAPSULE PO SCH (22:03)
[2021-03-06] MEDS: chlordiazePOXIDE HCL 25 MG CAPSULE PO SCH ×4 (06:06→22:08)
[2021-03-06] MEDS ORDERED: PRENATAL VITAMINS W/ FOLIC ACID TABLET (FP) PO SCH (10:00)
[2021-03-06] MEDS ORDERED: NICOTINE 14 MG/24 HOURS TOPICAL PATCH TD SCH (10:00)
[2021-03-06] MEDS: NICOTINE 14 MG/24 HOURS TOPICAL PATCH TD SCH (10:40)
[2021-03-06] MEDS: PRENATAL VITAMINS W/ FOLIC ACID TABLET (FP) PO SCH (10:40)
[2021-03-06 11:34] LABS: HEMATOCRIT 30.8 % (35.4-49); HEMOGLOBIN 10.2 GM/dL (11.7-16.9); MCH 30.4 pg (25.7-33.7); MEAN CELL VOLUME 92.2 fl (80-96); MEAN PLT VOLUME 9.6 fl (7.5-11.1); PLATELET COUNT 212 K/MM3 (134-434); RBC 3.34 M/mm3 (4.00-5.60); RDW 15.7 % (11.9-15.9); WHITE BLOOD COUNT 5.7 K/mm3 (4.0-10.0)
[2021-03-06 11:41] LABS: ALBUMIN 3.3 g/dl (3.4-5.0); BLOOD UREA NITROGEN 19.5 mg/dL (7-18); CALCIUM 9.3 mg/dL (8.5-10.1)
[2021-03-06 11:45] LABS: CREATININE 1.2 mg/dL (0.55-1.3)
[2021-03-06 11:46] LABS: BILIRUBIN,TOTAL 1.1 mg/dL (0.2-1); TOT PROT 7.1 g/dl (6.4-8.2)
[2021-03-06] MEDS ORDERED: ALBUTEROL SO4 HFA INHALER IH PRN (14:25)
[2021-03-06] MEDS: amLODIPine BESYLATE 5 MG TABLET (FP) PO SCH (14:41)
[2021-03-06] MEDS: ARTIFICIAL TEARS (POLYVINYL ALCOHOL) OPTH DROPS OU SCH ×2 (18:40→22:12)
[2021-03-06] MEDS ORDERED: PATIENT'S OWN MEDICATION (NON-FORMULARY) (Brimonidine Tartrate/Timolol [Combigan 0.2%-0.5% OP SCH (22:00)
[2021-03-06] MEDS: MELATONIN 5 MG TABLETS PO SCH (22:08)
[2021-03-06] MEDS: THIAMINE HCL 100 MG TABLET (FP) PO SCH (22:08)
[2021-03-06] MEDS: TIMOLOL 0.5% OPHTHALMIC SOL 5 ML BOTTLE OS SCH (22:11)
[2021-03-07] MEDS: chlordiazePOXIDE HCL 25 MG CAPSULE PO SCH ×4 (07:13→22:15)
[2021-03-07] MEDS: ARTIFICIAL TEARS (POLYVINYL ALCOHOL) OPTH DROPS OU SCH ×2 (07:13→14:32)
[2021-03-07] MEDS: NICOTINE 14 MG/24 HOURS TOPICAL PATCH TD SCH (10:48)
[2021-03-07] MEDS: amLODIPine BESYLATE 5 MG TABLET (FP) PO SCH (10:48)
[2021-03-07] MEDS: PRENATAL VITAMINS W/ FOLIC ACID TABLET (FP) PO SCH (10:55)
[2021-03-07] MEDS: TIMOLOL 0.5% OPHTHALMIC SOL 5 ML BOTTLE OS SCH (10:55)
[2021-03-07] MEDS: MELATONIN 5 MG TABLETS PO SCH (22:15)
[2021-03-07] MEDS: THIAMINE HCL 100 MG TABLET (FP) PO SCH (22:15)
[2021-03-08] MEDS ORDERED: chlordiazePOXIDE HCL 10 MG CAPSULE PO PRN
[2021-03-08] MEDS: chlordiazePOXIDE HCL 10 MG CAPSULE PO SCH ×4 (07:06→22:54)
[2021-03-08] MEDS: ARTIFICIAL TEARS (POLYVINYL ALCOHOL) OPTH DROPS OU SCH ×4 (07:23→22:55)
[2021-03-08] MEDS: NICOTINE 14 MG/24 HOURS TOPICAL PATCH TD SCH (10:27)
[2021-03-08] MEDS: amLODIPine BESYLATE 5 MG TABLET (FP) PO SCH (10:28)
[2021-03-08] MEDS: TIMOLOL 0.5% OPHTHALMIC SOL 5 ML BOTTLE OS SCH ×3 (10:28→22:55)
[2021-03-08] MEDS: PRENATAL VITAMINS W/ FOLIC ACID TABLET (FP) PO SCH (10:28)
[2021-03-08] MEDS: METHOCARBAMOL 500 MG TABLET PO PRN (17:46)
[2021-03-08] MEDS: MELATONIN 5 MG TABLETS PO SCH (22:54)
[2021-03-08] MEDS: THIAMINE HCL 100 MG TABLET (FP) PO SCH (22:54)
[2021-03-09] MEDS: chlordiazePOXIDE HCL 10 MG CAPSULE PO SCH ×2 (06:31→17:59)
[2021-03-09] MEDS: ARTIFICIAL TEARS (POLYVINYL ALCOHOL) OPTH DROPS OU SCH ×3 (06:32→22:52)
[2021-03-09 08:09] LABS: SARS-CoV-2 NAA Not Detected (Not Detected)
[2021-03-09] MEDS: PRENATAL VITAMINS W/ FOLIC ACID TABLET (FP) PO SCH (10:16)
[2021-03-09] MEDS: TIMOLOL 0.5% OPHTHALMIC SOL 5 ML BOTTLE OS SCH ×2 (10:16→22:52)
[2021-03-09] MEDS: NICOTINE 14 MG/24 HOURS TOPICAL PATCH TD SCH (10:16)
[2021-03-09] MEDS: amLODIPine BESYLATE 5 MG TABLET (FP) PO SCH (10:16)
[2021-03-09] MEDS: METHOCARBAMOL 500 MG TABLET PO PRN (10:18)
[2021-03-09] MEDS ORDERED: hydrOXYzine PAMOATE 25 MG CAPSULE (FP) PO PRN (15:12)
[2021-03-09] MEDS: THIAMINE HCL 100 MG TABLET (FP) PO SCH (22:52)
[2021-03-09] MEDS: MELATONIN 5 MG TABLETS PO SCH (22:52)
[2021-03-10] MEDS ORDERED: chlordiazePOXIDE HCL 10 MG CAPSULE PO ONE (05:00)
[2021-03-10] MEDS: ARTIFICIAL TEARS (POLYVINYL ALCOHOL) OPTH DROPS OU SCH (06:15)
[2021-03-10 09:55] VITALS: BP 125/73; PULSE 90; TEMP 96.3
== END 2021-03-10 09:56 | disposition other institution (70) | DRG 775 ==
LOC: YASAS 14:04 → Y6N 19:08
PROVIDERS: ADMIT Allergy & Immunology; ATTEND Allergy & Immunology
PROC: HZ2ZZZZ Detoxification Services for Substance Abuse Treatment (ICD-10-PCS; principal; 2021-03-05)
DX: F10.230 Alcohol dependence with withdrawal, uncomplicated (principal); F17.210 Nicotine dependence, cigarettes, uncomplicated; D50.9 Iron deficiency anemia, unspecified; I10 Essential (primary) hypertension; J45.909 Unspecified asthma, uncomplicated; H54.1213 Low vision right eye category 1, blindness left eye category 3; J40 Bronchitis, not specified as acute or chronic; R76.11 Nonspecific reaction to tuberculin skin test without active tuberculosis; Z88.6 Allergy status to analgesic agent; Z91.011 Allergy to milk products; Z91.018 Allergy to other foods; Z59.0 Homelessness; Z56.0 Unemployment, unspecified
CPT/HCPCS: 36415; 71046-TC-FY; 80053; 82728; 83550; 85027; 86780; 93005; 93010; C9803; U0003; U0005

== ENCOUNTER 2023-05-26 17:17 | Inpatient (IN) | payer OTHER ==
[2023-05-26 18:15] VITALS: BMI 21.7
[2023-05-26] MEDS ORDERED: IBUPROFEN 400 MG TABLET (FP) PO PRN (22:36)
[2023-05-26] MEDS ORDERED: NALOXONE HCL (KLOXXADO) 8 MG SPRAY NS PRN (22:36)
[2023-05-26] MEDS ORDERED: IBUPROFEN 600 MG TABLET (FP) PO PRN (22:36)
[2023-05-26] MEDS ORDERED: METHOCARBAMOL 500 MG TABLET PO PRN (22:36)
[2023-05-26] MEDS ORDERED: ONDANSETRON *ODT* 4 MG TABLET SL PRN (22:36)
[2023-05-26] MEDS ORDERED: ACETAMINOPHEN 325 MG TABLET (FP) PO PRN (22:36)
[2023-05-26] MEDS ORDERED: BENZOCAINE/MENTHOL (CHLORASEPTIC ) LOZENGE MM PRN (22:36)
[2023-05-26] MEDS ORDERED: guaiFENesin 600 MG TABLET.ER (FP) PO PRN (22:36)
[2023-05-26] MEDS ORDERED: NICOTINE 10 MG CARTRIDGE (INHALER) IH PRN (22:36)
[2023-05-26] MEDS ORDERED: MAG HYDROX/AL HYDROX/SIMETH 30 ML UNIT-DOSE CUP PO PRN (22:36)
[2023-05-26] MEDS ORDERED: DICYCLOMINE HCL 10 MG CAPSULE PO PRN (22:36)
[2023-05-26] MEDS ORDERED: MAGNESIUM HYDROX 2400MG/30ML ORAL SUSPENSION 30 ML CUP PO PRN (22:36)
[2023-05-26] MEDS ORDERED: BENZONATATE 200 MG CAPSULE PO PRN (22:36)
[2023-05-26] MEDS ORDERED: BISMUTH SUBSALICYLATE 524 MG/30 ML PO PRN (22:36)
[2023-05-26] MEDS ORDERED: LOPERAMIDE HCL 2 MG CAPSULE PO PRN (22:36)
[2023-05-26] MEDS ORDERED: NALOXONE HCL 0.4 MG/ML VIAL IM PRN (22:36)
[2023-05-26] MEDS ORDERED: POLYETHYLENE GLYCOL (HEALTHYLAX) 3350 17 GM PACKET PO PRN (22:36)
[2023-05-26] MEDS ORDERED: chlordiazePOXIDE HCL 25 MG CAPSULE PO PRN (22:42)
[2023-05-26] MEDS ORDERED: chlordiazePOXIDE HCL 25 MG CAPSULE ONE (23:14)
[2023-05-26] MEDS: chlordiazePOXIDE HCL 25 MG CAPSULE PO SCH (23:17)
[2023-05-27] MEDS: chlordiazePOXIDE HCL 25 MG CAPSULE PO SCH ×4 (05:18→22:45)
[2023-05-27] MEDS: NICOTINE 14 MG/24 HOURS TOPICAL PATCH TD SCH (10:37)
[2023-05-27] MEDS: PRENATAL VITAMINS W/ FOLIC ACID TABLET (FP) PO SCH (10:37)
[2023-05-27 11:34] LABS: HEMATOCRIT 32.5 % (35.4-49); HEMOGLOBIN 10.5 GM/dL (11.7-16.9); MCH 26.9 pg (25.7-33.7); MCHC 32.4 g/dl (32.0-35.9); MEAN PLT VOLUME 10.3 fl (7.5-11.1); PLATELET COUNT 233 10^3/uL (134-434); RBC 3.92 M/mm3 (4.00-5.60); RDW 17.2 % (11.9-15.9)
[2023-05-27 11:52] LABS: BLOOD UREA NITROGEN 13.9 mg/dL (7-18); CALCIUM 9.4 mg/dL (8.5-10.1)
[2023-05-27 11:55] LABS: BILIRUBIN,TOTAL 0.9 mg/dL (0.2-1); CREATININE 1.1 mg/dL (0.55-1.3)
[2023-05-27 11:57] LABS: TOT PROT 7.9 g/dl (6.4-8.2)
[2023-05-27] MEDS: BRIMONIDINE TARTRATE 0.2% OPHTHALMIC 5 ML BOTTLE OU SCH (22:00)
[2023-05-27] MEDS: DORZOLAMIDE 2% HCL OPHTHALMIC SOLUTION 10 ML BOTTLE OU SCH (22:00)
[2023-05-27] MEDS: TIMOLOL 0.5% OPHTHALMIC SOL 5 ML BOTTLE OU SCH (22:00)
[2023-05-27] MEDS: THIAMINE HCL 100 MG TABLET (FP) PO SCH (22:46)
[2023-05-27] MEDS: MELATONIN 5 MG TABLETS PO SCH (22:49)
[2023-05-28] MEDS: chlordiazePOXIDE HCL 25 MG CAPSULE PO SCH ×4 (05:41→22:33)
[2023-05-28] MEDS: DORZOLAMIDE 2% HCL OPHTHALMIC SOLUTION 10 ML BOTTLE OU SCH ×3 (05:42→22:34)
[2023-05-28] MEDS ORDERED: ALBUTEROL SO4 HFA INHALER IH PRN (09:10)
[2023-05-28] MEDS: ACETAMINOPHEN 325 MG TABLET (FP) PO PRN (10:29)
[2023-05-28] MEDS: PRENATAL VITAMINS W/ FOLIC ACID TABLET (FP) PO SCH (10:29)
[2023-05-28] MEDS: TAMSULOSIN HCL 0.4 MG CAP PO SCH (10:29)
[2023-05-28] MEDS: METHOCARBAMOL 500 MG TABLET PO PRN (10:29)
[2023-05-28] MEDS: amLODIPine BESYLATE 5 MG TABLET (FP) PO SCH (10:29)
[2023-05-28] MEDS: TIMOLOL 0.5% OPHTHALMIC SOL 5 ML BOTTLE OU SCH ×2 (10:30→22:34)
[2023-05-28] MEDS: NICOTINE 14 MG/24 HOURS TOPICAL PATCH TD SCH (10:30)
[2023-05-28] MEDS: BRIMONIDINE TARTRATE 0.2% OPHTHALMIC 5 ML BOTTLE OU SCH ×2 (10:30→22:34)
[2023-05-28] MEDS: THIAMINE HCL 100 MG TABLET (FP) PO SCH (22:33)
[2023-05-28] MEDS: ATORVASTATIN CA 20 MG TABLET (FP) PO SCH (22:33)
[2023-05-28] MEDS: MELATONIN 5 MG TABLETS PO SCH (22:33)
[2023-05-29] MEDS ORDERED: chlordiazePOXIDE HCL 10 MG CAPSULE PO PRN
[2023-05-29] MEDS: chlordiazePOXIDE HCL 10 MG CAPSULE PO SCH ×4 (05:43→22:43)
[2023-05-29] MEDS: DORZOLAMIDE 2% HCL OPHTHALMIC SOLUTION 10 ML BOTTLE OU SCH ×3 (05:58→22:46)
[2023-05-29] MEDS: ACETAMINOPHEN 325 MG TABLET (FP) PO PRN (06:10)
[2023-05-29] MEDS: TAMSULOSIN HCL 0.4 MG CAP PO SCH (07:56)
[2023-05-29] MEDS: METHOCARBAMOL 500 MG TABLET PO PRN ×2 (10:25→22:45)
[2023-05-29] MEDS: amLODIPine BESYLATE 5 MG TABLET (FP) PO SCH (10:25)
[2023-05-29] MEDS: BRIMONIDINE TARTRATE 0.2% OPHTHALMIC 5 ML BOTTLE OU SCH ×2 (10:25→22:47)
[2023-05-29] MEDS: NICOTINE 14 MG/24 HOURS TOPICAL PATCH TD SCH (10:25)
[2023-05-29] MEDS: PRENATAL VITAMINS W/ FOLIC ACID TABLET (FP) PO SCH (10:25)
[2023-05-29] MEDS: TIMOLOL 0.5% OPHTHALMIC SOL 5 ML BOTTLE OU SCH ×2 (10:26→22:47)
[2023-05-29] MEDS: ATORVASTATIN CA 20 MG TABLET (FP) PO SCH (22:44)
[2023-05-29] MEDS: MELATONIN 5 MG TABLETS PO SCH (22:44)
[2023-05-29] MEDS: THIAMINE HCL 100 MG TABLET (FP) PO SCH (22:44)
[2023-05-29] MEDS: SODIUM CHLORIDE NASAL SPRAY 44 ML BOTTLE NS PRN (22:47)
[2023-05-30] MEDS ORDERED: chlordiazePOXIDE HCL 10 MG CAPSULE PO SCH (05:00)
[2023-05-30] MEDS: DORZOLAMIDE 2% HCL OPHTHALMIC SOLUTION 10 ML BOTTLE OU SCH (05:37)
[2023-05-30 06:25] VITALS: TEMP 97.3
[2023-05-30] MEDS: TAMSULOSIN HCL 0.4 MG CAP PO SCH (09:10)
[2023-05-30] MEDS: BRIMONIDINE TARTRATE 0.2% OPHTHALMIC 5 ML BOTTLE OU SCH (09:11)
[2023-05-30] MEDS: TIMOLOL 0.5% OPHTHALMIC SOL 5 ML BOTTLE OU SCH (09:11)
[2023-05-30] MEDS: NICOTINE 14 MG/24 HOURS TOPICAL PATCH TD SCH (09:12)
[2023-05-30] MEDS: SODIUM CHLORIDE NASAL SPRAY 44 ML BOTTLE NS PRN (09:12)
[2023-05-30] MEDS: amLODIPine BESYLATE 5 MG TABLET (FP) PO SCH (09:13)
[2023-05-30] MEDS: PRENATAL VITAMINS W/ FOLIC ACID TABLET (FP) PO SCH (09:14)
[2023-05-30 09:31] VITALS: BP 121/70; PULSE 66; RESP 17
[2023-05-31] MEDS ORDERED: chlordiazePOXIDE HCL 10 MG CAPSULE PO ONE (05:00)
== END 2023-05-30 09:53 | disposition home or self-care (01) | DRG 774 ==
LOC: YASAS 17:17 → Y6N 23:00
PROVIDERS: ADMIT Allergy & Immunology; ATTEND Surgery
PROC: HZ2ZZZZ Detoxification Services for Substance Abuse Treatment (ICD-10-PCS; principal; 2023-05-26)
DX: F10.230 Alcohol dependence with withdrawal, uncomplicated (principal); F14.20 Cocaine dependence, uncomplicated; F17.210 Nicotine dependence, cigarettes, uncomplicated; H54.40 Blindness, one eye, unspecified eye; H54.61 Unqualified visual loss, right eye, normal vision left eye; H54.7 Unspecified visual loss; I10 Essential (primary) hypertension; J45.909 Unspecified asthma, uncomplicated; K21.9 Gastro-esophageal reflux disease without esophagitis; M54.50 Low back pain, unspecified; G89.29 Other chronic pain; N40.0 Benign prostatic hyperplasia without lower urinary tract symptoms; Z99.89 Dependence on other enabling machines and devices; Z87.01 Personal history of pneumonia (recurrent); D50.9 Iron deficiency anemia, unspecified; Z59.00 Homelessness unspecified
CPT/HCPCS: 36415; 71046-TC-FY; 80053; 85027; 86780; 87635; 93005; 93010